=== PATIENT | female | born 1960 | race Caucasian/White ===

== ENCOUNTER 2019-02-13 13:34 | Inpatient (IN) | payer OTHER ==
[2019-02-13 14:07] LABS: #Basophils 0.1 thou/uL (0.0-0.2); #Eosinphils 0.1 thou/uL (0.0-0.7); #Lymphocytes 2.4 thou/uL (1.20-3.40); #Monocytes 0.6 thou/uL (0.11-0.59); #Neutrophils 4.1 thou/uL (1.40-6.50); %Eosinophils 1.3 % (0.0-10.0); %Lymphocytes 33.3 % (21.0-51.0); %Monocytes 7.8 % (0.0-10.0); %Neutrophils 56.6 % (42.0-75.0); Hemoglobin 13.6 g/dL (12.0-16.0); Mean Corpuscular HGB CONC 33.2 g/dL (32.0-36.0); Mean Corpuscular Volume 87.4 fL (78.0-98.0); Mean Platelet Volume 6.1 fL (7.4-10.4); Platelet Count 349 thou/uL (130-400); RBC Distribution Width 11.9 % (11.5-14.5); Red Blood Cell (RBC) Count 4.69 mill/uL (4.20-5.40); White Blood Cell (WBC) Count 7.3 thou/uL (4.8-10.8)
[2019-02-13 14:30] LABS: ALT (SGPT) 11 U/L (8-55); AST (SGOT) 14 U/L (5-34); Albumin 4.4 g/dL (3.5-5.0); Alkaline Phosphatase 82 U/L (40-150); Anion Gap 15 mmol/L (10-20); BUN (Urea Nitrogen) 14 mg/dL (9.8-20.1); Bilirubin, Total 0.6 mg/dL (0.2-1.2); Calc. Creatinine Clearance 0 mL/min (70-130); Calcium 10.1 mg/dL (7.8-10.44); Carbon Dioxide 27 mmol/L (22-29); Chloride 106 mmol/L (98-107); Estimated GFR-MDRD 51; Glucose 94 mg/dL (70-105); Lipase 27 U/L (8-78); Potassium 3.7 mmol/L (3.5-5.1); Protein, Total 7.4 g/dL (6.0-8.3); Sodium 144 mmol/L (136-145)
[2019-02-13] MEDS ORDERED: Lorazepam 2 MG/ML VIAL ONE (14:30)
[2019-02-13 15:16] LABS: PTT 36.2 SEC (22.9-36.1)
[2019-02-13 15:17] LABS: D-Dimer Test 0.95 *mcg/mL (0.27-0.43); Prothrombin Time 12.7 SEC (12.0-14.7)
--- NOTE | 2019-02-13 15:33 | CT ---
CT CHEST WITHOUT CONTRAST CLINICAL INDICATION: Shortness of breath after traveling. Difficulty swallowing. COMPARISON: None FINDINGS: Aorta: Lack of intravenous contrast limits evaluation of the vascular structures. However, the thorac ic aorta is normal in caliber. Lungs: Minimal biapical pleural and parenchymal scarring is present. The lungs are otherwise clear. N o discrete pulmonary nodule, mass, or pleural effusion is seen. Mediastinum: Lack of intravenous contrast limits evaluation of mediastinal structures, but no definit e enlarged lymph nodes are seen. There is minimal pericardial thickening versus pericardial effusion anteriorly. Thyroid gland: Grossly normal nonenhanced CT appearance Osseous structures: Postsurgical changes right shoulder are noted with anchor screws seen in the righ t humeral head likely due to prior rotator cuff repair. Mild degenerative changes are seen in the thoracic spine. Dorsal column stimulator leads are noted in place and terminate at the T8-9 level. Chest wall: There is suggestion of small nodular densities within each breast. However, this would be better evaluated with mammography. Upper abdomen: Postcholecystectomy changes are noted. There is moderate right-sided hydronephrosis pa rtially visualized involving the upper right renal collecting system. This could potentially represent parapelvic renal cysts, but parapelvic renal cysts were not seen on CT abdomen on 07/31/2015 . Small hiatal hernia is present. IMPRESSION: 1. Suggestion of small nodular densities in each breast. This would be better evaluated with mammogra phy if the patient has not had recent mammogram. 2. Suggestion of moderate right hydronephrosis involving the visualized superior pole right kidney. R enal sonogram is suggested for further evaluation. 3. The lungs are clear. 4. Small hiatal hernia. 5. Cholecystectomy.
--- NOTE | 2019-02-13 15:55 | CT ---
CT NECK WITHOUT CONTRAST: Axial tomograms are obtained with multiplanar reconstruction. The exam of the soft tissue neck is extremely limited without IV contrast. INDICATION: Difficulty swallowing. FINDINGS: Parotid glands, submandibular glands, and thyroid appear unremarkable. The thyroid is mildly heterog eneous and there may be tiny nodules present. Nasopharynx unremarkable. Oropharynx is obscured by dental appliances which produce the spray artifact. Base of tongue and brittany pharynx appear unremarkable. Waldeyer's ring appears symmetric. Hypopharynx shows effacement of the left piriform sinus. This should e directly evaluated to rule ou t mucosal abnormality. No evidence of soft tissue mass identified. Larynx appear unremarkable. The ad operations intern space, parapharyngeal space, and retropharyngeal space appear unremarkable. Degree of lymph node levels show nonspecific level I lymph nodes which are subcentimeter. No evidence of level II, level III, level IV, or level V adenopathy. There are mild to moderate degenerative changes in the cervical spine with disk narrowing and posteri or spondylosis most prominent at the C5-6 and C6-7 levels. There is cord impingement at C6-7. There is a mucous retention cyst in the left maxillary antrum which measures up to 2.5 cm. IMPRESSION: 1. Effacement of the left piriform sinus noted in the hypopharynx. Recommend direct evaluation to r ule out mucosal abnormality. 2. Mucous retention cyst in the left maxillary antrum. 3. No adenopathy. POS: OFF
[2019-02-13] MEDS ORDERED: Enoxaparin Sodium 80 MG/0.8 ML SYRINGE ONE (16:19)
[2019-02-13 18:24] VITALS: BMI 27.6
[2019-02-13] MEDS: Sodium Chloride 0.9% 1,000 ML IV SCH (20:38)
[2019-02-13] MEDS ORDERED: Zolpidem Tartrate 5 MG TAB PO SCH (22:45)
[2019-02-13] MEDS: Acetaminophen 325 MG TAB PO PRN (22:52)
[2019-02-13] MEDS: diphenhydrAMINE 50 MG/ML VIAL IVP SCH (22:53)
--- NOTE | 2019-02-13 23:40 | PDOC.EVN ---
Event Note - Event Note Event Note: H7P dictated
[2019-02-14] MEDS: diphenhydrAMINE 50 MG/ML VIAL IVP SCH ×4 (05:26→23:50)
[2019-02-14] MEDS: Sodium Chloride 0.9% 1,000 ML IV SCH (05:27)
--- NOTE | 2019-02-14 06:05 | HP ---
CHIEF COMPLAINT: Allergic reaction and shortness of breath. HISTORY OF PRESENT ILLNESS: Ms. Maynard is a 58-year-old female with history of hypertension and chronic back pain who presented to her primary care physician's office with itching for the last 3 days after she came back from a trip from [place]. In her primary care's office, patient was given dexamethasone and Depo-Medrol IM. After that she started having worsening of shortness of breath and tightness in her throat and unable to talk. The patient mentions that she had some mosquito bites and headache as well as rash on her forearms, requested to transfer the patient to [facility] for further management. Currently, the patient is feeling little better. She is still having itching. She is still having some scratchy throat and change in her voice. Other than that she is not in any respiratory distress. PAST MEDICAL HISTORY: 1. Hypertension. 2. Chronic back pain. PAST SURGICAL HISTORY: 1. Appendectomy. 2. Cholecystectomy. 3. Hysterectomy. 4. Hernia. 5. Back surgery x3. SOCIAL HISTORY: Denies smoking or alcohol drinking. FAMILY HISTORY: Reviewed and noncontributory. ALLERGIES: THE PATIENT IS ALLERGIC TO SHRIMP, IODINE, ERYTHROMYCIN AND CODEINE. REVIEW OF SYSTEMS: Review of 14 systems negative expect what was mentioned in the history of present illness. PHYSICAL EXAMINATION: GENERAL: The patient is awake, alert, not in acute distress. VITAL SIGNS: Heart rate is 105, respiratory rate 18, temperature 98.6, blood pressure is 150/90. HEAD AND NECK: Normocephalic and atraumatic. Neck is supple. Having hoarseness of her voice. Tongue normal size, not enlarged. CHEST: Fair bilateral air entry. No wheezing, no stridor. ABDOMEN: Soft, nontender. Bowel sounds present. HEART: S1, S2 regular. Tachycardic. NEUROLOGIC: Awake, alert, and oriented x3. PSYCHIATRIC: Normal mood. EXTREMITIES: No clubbing or cyanosis. SKIN: There is erythematous rash in both hands. ASSESSMENT: 1. Anaphylaxis reaction. 2. Shortness of breath secondary to above. 3. Hypertension. 4. Chronic back pain. PLAN: 1. We will admit to IMCU. 2. Close monitoring. 3. We will continue with IV benadryl and IV Pepcid. 4. We will avoid steroids for now. Apparently, the patient had a bad reaction to dexamethasone. 5. Acute pulmonary embolism is unlikely given patient presentation and rash and shortness of breath after taking IV dexamethasone. I will hold doing any CT angiogram since the patient is allergic to iodine. Also, we will reassess in the morning, if the patient needs further management, but I believe that representation is more like allergic in nature and acute pulmonary embolism is less likely. 6. Deep venous thrombosis prophylaxis, early ambulation. 7. Reconcile home medications. 8. Expected length of stay 1 midnight, if patient stable. Job ID: [id number]
--- NOTE | 2019-02-14 09:54 | ULT ---
US Renal Bilateral STANDARD HISTORY: Right-sided hydronephrosis COMPARISON: CT examination done yesterday FINDINGS: Real-time imaging of the right and left kidneys were performed. The right kidney measures 1 0.3 cm, the left kidney 10.1 cm in size. Right-sided hydronephrosis is identified. The bladder region appears unremarkable. A right ureteral jet was not identified. IMPRESSION: Right-sided hydronephrosis of uncertain etiology. CT would be suggested for further asses sment.
[2019-02-14] MEDS: Acetaminophen 325 MG TAB PO PRN (17:23)
--- NOTE | 2019-02-14 19:19 | PDOC.HOSPP ---
- Subjective Encounter Date: 02/14/19 Encounter Time: 14:00 Subjective: pt up in bed voice is hoarsed. - Objective Vital Signs & Weight: Vital Signs (12 hours) Temp Pulse Ox 02/14/19 15:38 99.2 F 02/14/19 11:16 97.8 F 02/14/19 08:00 97 02/14/19 07:30 98.5 F Weight Weight 150 lb 12.8 oz Most Recent Monitor Data Heart Rate from ECG 72 NIBP 135/76 NIBP BP-Mean 95 Respiration from ECG 14 SpO2 100 I&O: 02/13/19 02/14/19 02/15/19 06:59 06:59 06:59 Intake Total 1161 Balance 1161 Result Diagrams: 02/13/19 13:30 02/13/19 13:30 Hospitalist ROS - Review of Systems Respiratory: reports: other (hoarsed) Cardiovascular: denies: chest pain, palpitations, orthopnea, paroxysmal noc. dyspnea, edema, light headedness, other Gastrointestinal: denies: nausea, vomiting, abdominal pain, diarrhea, constipation, melena, hematochezia, other - Medication Medications: Active Medications Generic Name Dose Route Start Last Admin Trade Name Freq PRN Reason Stop Dose Admin Acetaminophen 650 mg 02/13/19 22:41 02/14/19 17:23 Tylenol PO 650 mg Q6H PRN Administration Pain Diphenhydramine HCl 25 mg 02/13/19 23:59 02/14/19 17:23 Benadryl IVP 25 mg Q6HR KEVIN Administration Sodium Chloride 10 ml 02/14/19 09:00 02/14/19 09:02 Flush - Normal Saline IVF Not Given Q12HR KEVIN - Exam Neck: negative: supple, symmetric, no JVD, no thyromegaly, no lymphadenopathy, no carotid bruit, JVD Heart: negative: RRR, no murmur, no gallops, no rubs, normal peripheral pulses, irregular, diminshed peripheral pulses, murmur present, II/IV, III/IV Respiratory: negative: CTAB, no wheezes, no rales, no ronchi, normal chest expansion, no tachypnea, normal percussion, rales, rhonchi, tachypneic, wheezes Hosp A/P (1) Allergic reaction Code(s): T78.40XA - ALLERGY, UNSPECIFIED, INITIAL ENCOUNTER Status: Acute (2) Hoarseness of voice Status: Acute (3) HTN (hypertension) Code(s): I10 - ESSENTIAL (PRIMARY) HYPERTENSION Status: Acute - Plan pt's rash was not visible on my examination. She denies using any new products that could cause this reaction. I did speak with her Primary care physician Dr Ortiz who stated that as soon as the needle came out she started to get hoarsed but she was tachycardia when she got to the clinic. According to the pt her rash is pruritic and is only on her palms bilaterally going up to her hands. She also stated that her soles were pruritic too. Not sure if this is tick born related but i think this is allergic. Her voice is very hoarsed. she has no trouble breathing but she has to strain to talk.
[2019-02-14] MEDS: Famotidine/PF 20 mg/2ml Vial SLOW IVP SCH (21:41)
[2019-02-14] MEDS: Gabapentin 300 MG CAP PO SCH (21:42)
[2019-02-14] MEDS: Zolpidem Tartrate 5 MG TAB PO SCH (21:42)
[2019-02-15] MEDS: diphenhydrAMINE 50 MG/ML VIAL IVP SCH ×3 (05:45→17:03)
[2019-02-15] MEDS: Famotidine/PF 20 mg/2ml Vial SLOW IVP SCH ×2 (09:03→21:24)
[2019-02-15] MEDS ORDERED: Calamine/Zinc Oxide 177 ML LOTION TP PRN (12:48)
[2019-02-15] MEDS ORDERED: methylPREDNISolone Sod Succ/PF 125 MG/2 ML VIAL IVP SCH (14:45)
[2019-02-15] MEDS ORDERED: Lorazepam 2 MG/ML VIAL SLOW IVP SCH (15:00)
[2019-02-15] MEDS ORDERED: EPINEPHrine 1 MG/ML AMP IM PRN (15:00)
[2019-02-15 15:09] LABS: #Basophils 0.1 thou/uL (0.0-0.2); #Eosinphils 0.1 thou/uL (0.0-0.7); #Lymphocytes 4.8 thou/uL (1.20-3.40); #Neutrophils 7.5 thou/uL (1.40-6.50); %Basophils 0.5 % (0.0-1.0); %Lymphocytes 35.7 % (21.0-51.0); %Monocytes 7.1 % (0.0-10.0); %Neutrophils 55.8 % (42.0-75.0); Hemoglobin 12.8 g/dL (12.0-16.0); Mean Corpuscular HGB CONC 34.1 g/dL (32.0-36.0); Mean Corpuscular Hemoglobin 29.8 pg (27.0-31.0); Mean Corpuscular Volume 87.4 fL (78.0-98.0); Mean Platelet Volume 7.9 fL (7.4-10.4); Platelet Count 348 thou/uL (130-400); RBC Distribution Width 11.5 % (11.5-14.5); Red Blood Cell (RBC) Count 4.29 mill/uL (4.20-5.40); White Blood Cell (WBC) Count 13.4 thou/uL (4.8-10.8)
[2019-02-15 15:27] LABS: ALT (SGPT) 8 U/L (8-55); AST (SGOT) 13 U/L (5-34); Albumin 4.1 g/dL (3.5-5.0); Alkaline Phosphatase 72 U/L (40-150); Anion Gap 12 mmol/L (10-20); BUN (Urea Nitrogen) 11 mg/dL (9.8-20.1); Bilirubin, Total 0.4 mg/dL (0.2-1.2); CRP (Inflammatory) Less than 0.50 mg/dL (= or < 0.5); Calc. Creatinine Clearance 59 mL/min (70-130); Calcium 9.6 mg/dL (7.8-10.44); Carbon Dioxide 27 mmol/L (22-29); Chloride 107 mmol/L (98-107); Estimated GFR-MDRD 51; Globulin 2.8 g/dL (2.4-3.5); Glucose 99 mg/dL (70-105); Potassium 3.2 mmol/L (3.5-5.1); Protein, Total 6.9 g/dL (6.0-8.3); Sodium 143 mmol/L (136-145)
[2019-02-15] MEDS ORDERED: cefTRIAXone\\ROCEPHIN 2 GM in Sodium Chloride 0.9% 100 ML IVPB SCH (16:00)
--- NOTE | 2019-02-15 16:05 | CON ---
DATE OF CONSULTATION: 02/15/2019 SERVICE: Pulmonary Medicine. REASON FOR CONSULTATION: IMCU patient. HISTORY OF PRESENT ILLNESS: The patient is a 58-year-old white female with past medical history significant for essentially nothing. That being said, she was having this rash on her hands. She went to her primary care physician, who gave her a steroid injection. As she was withdrawing the needle of the injection, the patient had sudden onset of hoarseness, shortness of breath, and some difficulty swallowing. She was brought to the emergency department. Whenever she gets a dose of Benadryl, the rash in her hands goes away. That being said, we have had 3 separate episodes in which the rash is come back after the Benadryl wears off. Yesterday, she was having difficulties with swallowing. This morning, she was able to eat food without difficulty, but for lunch, she once again started having increasing difficulty with swallowing and hoarseness. The rash in her hands came back. She denies any current fevers, chills, nausea, or vomiting. She has not been having on and off diarrhea. She denies having any abdominal discomfort. PAST MEDICAL HISTORY: 1. Hypertension. 2. Chronic back pain. PAST SURGICAL HISTORY: 1. Appendectomy. 2. Cholecystectomy. 3. Hysterectomy. 4. Herniorrhaphy. 5. Back surgery x3. SOCIAL HISTORY: Negative for alcohol, tobacco, or illicit drug use. She has no exposure to chemicals, dust, asbestos, or tuberculosis. FAMILY HISTORY: Noncontributory. ALLERGIES: IODINE, ERYTHROMYCIN, AND CODEINE. MEDICATIONS: List of her inpatient medications was reviewed. I have gotten rid of basically everything that she does not have a symptom that would warrant. PHYSICAL EXAMINATION: VITAL SIGNS: Afebrile, pulse 84, blood pressure 141/77, respirations 15, and saturation 100% currently on room air. GENERAL: The patient is awake and alert, in no apparent distress. LUNGS: Absolutely wonderful air entry. There is no prolonged expiratory phase. No wheezing, rhonchi, or crackles are appreciated. She is moving beautiful air. There is absolutely no stridor in the upper airway. HEART: Normal rate. Regular. ABDOMEN: Soft, nontender, and nondistended. Bowel sounds are positive. MUSCULOSKELETAL: No cyanosis or clubbing. There is no pitting in the bilateral lower extremities. The rash consists of papular, erythematous, nonblanching splotchy lesions scattered throughout the acral regions on the palms of her hands, in the soles of her feet. She has some limited disease in the lateral aspects of the fingers and palms. She has one or two spots on the back of the hand, but the rest of her arms, body, and face are unaffected. REVIEW OF SYSTEMS: General; head, ears, eyes, nose, throat; cardiovascular; respiratory; GI; ; musculoskeletal; neurologic; and skin are negative except as mentioned in the HPI. LABORATORY DATA: CBC is completely unremarkable. Eosinophil count is low. INR 1.0. Basic metabolic profile and liver function studies are completely unremarkable. Troponin is negative x1, BNP is unremarkable. Lactate is negative. IMAGING: Renal ultrasound demonstrates small amount of right-sided hydronephrosis. No ureteral jet was identified. CT of the neck demonstrates effacement of the left piriform sinus in the hypopharynx. Mucous retention cyst in the left maxillary antrum. No adenopathy is appreciated. CT of the chest demonstrates no acute cardiopulmonary abnormality. Small hiatal hernia is noted, and esophagus is quite patulous. ASSESSMENT: 1. Acral pruritic papular rash. 2. Hoarseness and dysphagia without discomfort, intermittent. 3. Dyspnea, resolved. DISCUSSION AND PLAN: The patient has really no swelling of the tongue or posterior oropharynx. Her air flow through her lungs is widely patent. At this point, it does not require advanced airway. ENT is going to come look at her nose and throat. If they see anything of concern, we will likely proceed with intubation. We are going to need to investigate this rash. I will initiate the patient on methylprednisolone q.6 as she had an abnormal response to the dexamethasone previously. ID has already been contacted. Pulmonary/Critical Care will follow in this location. She will need to remain here until she goes a period of time without having one of these events. 70 minutes have been devoted to this patient in various activities. I personally reviewed all imaging studies and laboratory data noted within this document. For fifty percent of this time, I was interacting with the patient at the bedside or coordinating care with the care team. For the remainder of the time I was immediately available to the patient in the hospital unit. Job ID: [id number] [facility]
[2019-02-15] MEDS ORDERED: NS 0.9% w/ 20 MEQ KCL 1,000 ML/1,000 ML BAG IV SCH (16:45)
[2019-02-15] MEDS: methylPREDNISolone Sod Succ 40 MG VIAL IVP SCH (17:03)
[2019-02-15 18:06] LABS: ANA Symphony (Qualitative) Negative (Negative); ANA Symphony (Quantitative) 0.2 Ratio (< 0.7 Negative); dsDNA IgG Antibody 0.5 IU/mL (<10 Negative)
--- NOTE | 2019-02-15 18:35 | PDOC.HOSPP ---
- Subjective Encounter Date: 02/15/19 Encounter Time: 12:30 Subjective: pt up in bed very hoarsed and is having difficult speaking - Objective Vital Signs & Weight: Vital Signs (12 hours) Temp Pulse Resp Pulse Ox 02/15/19 15:23 98.4 F 02/15/19 14:09 84 16 100 02/15/19 11:07 98.4 F 02/15/19 07:19 98.7 F Weight Weight 150 lb 12.8 oz Most Recent Monitor Data Heart Rate from ECG 93 NIBP 149/95 NIBP BP-Mean 113 Respiration from ECG 15 SpO2 100 I&O: 02/14/19 02/15/19 02/16/19 06:59 06:59 06:59 Intake Total 8546 582 9150 Balance 2950 253 2367 Result Diagrams: 02/15/19 14:24 02/15/19 14:23 Hospitalist ROS - Review of Systems ENT: reports: other (difficulty speaking) Respiratory: denies: cough, dry, shortness of breath, hemoptysis, SOB with excertion, pleuritic pain, sputum, wheezing, other Cardiovascular: denies: chest pain, palpitations, orthopnea, paroxysmal noc. dyspnea, edema, light headedness, other Gastrointestinal: denies: nausea, vomiting, abdominal pain, diarrhea, constipation, melena, hematochezia, other - Medication Medications: Active Medications Generic Name Dose Route Start Last Admin Trade Name Freq PRN Reason Stop Dose Admin Acetaminophen 650 mg 02/13/19 22:41 02/14/19 17:23 Tylenol PO 650 mg Q6H PRN Administration Pain Diphenhydramine HCl 25 mg 02/13/19 23:59 02/15/19 17:03 Benadryl IVP 25 mg Q6HR KEVIN Administration Epinephrine 0.3 mg 02/15/19 15:00 02/15/19 15:07 Epinephrine IM 0.3 mg Q5MIN PRN Administration Allergies Famotidine 20 mg 02/14/19 21:00 02/15/19 09:03 Pepcid SLOW IVP 20 mg BID KEVIN Administration Gabapentin 300 mg 02/14/19 21:00 02/14/19 21:42 Neurontin PO 300 mg HS KEVIN Administration Doxycycline Hyclate 100 mg/ 100 mls @ 100 mls/hr 02/15/19 17:00 02/15/19 17: 02 Sodium Chloride IVPB 03/01/19 17:01 100 mls 0500,1700 KEVIN Administration Ceftriaxone Sodium 2 gm/ 100 mls @ 200 mls/hr 02/15/19 16:00 02/15/19 16:04 Sodium Chloride IVPB 03/01/19 16:01 100 mls Q24HR KEVIN Administration Potassium Chloride/Sodium Chloride 1,000 ml in 1,000 mls @ 50 mls/hr 02/15/19 16:45 02/15/19 17:03 Ns 0.9% W/ 20 Meq Kcl IV 02/16/19 12:44 1,000 mls .Q20H KEVIN Administration Methylprednisolone Sodium Succinate 40 mg 02/15/19 18:00 02/15/19 17:03 Solu-Medrol IVP 40 mg Q6HR KEVIN Administration Sodium Chloride 10 ml 02/14/19 09:00 02/15/19 09:06 Flush - Normal Saline IVF 10 ml Q12HR KEVIN Administration Zolpidem Tartrate 10 mg 02/14/19 21:00 02/14/19 21:42 Ambien PO 10 mg HS KEVIN Administration - Exam Neck: negative: supple, symmetric, no JVD, no thyromegaly, no lymphadenopathy, no carotid bruit, JVD Heart: negative: RRR, no murmur, no gallops, no rubs, normal peripheral pulses, irregular, diminshed peripheral pulses, murmur present, II/IV, III/IV Respiratory: negative: CTAB, no wheezes, no rales, no ronchi, normal chest expansion, no tachypnea, normal percussion, rales, rhonchi, tachypneic, wheezes Skin - other findings: rash noted to bilateral palms Hosp A/P (1) Allergic reaction Code(s): T78.40XA - ALLERGY, UNSPECIFIED, INITIAL ENCOUNTER Status: Acute (2) Hoarseness of voice Status: Acute (3) HTN (hypertension) Code(s): I10 - ESSENTIAL (PRIMARY) HYPERTENSION Status: Acute - Plan pt's rash was not visible on my examination. She denies using any new products that could cause this reaction. I did speak with her Primary care physician Dr Ortiz who stated that as soon as the needle came out she started to get hoarsed but she was tachycardia when she got to the clinic. According to the pt her rash is pruritic and is only on her palms bilaterally going up to her hands. She also stated that her soles were pruritic too. Not sure if this is tick born related but i think this is allergic. Her voice is very hoarsed. she has no trouble breathing but she has to strain to talk. 02/15 spoke with ENT who will come to evaluate pt. pulmonary called since pt's is having difficulty swallowing. will also give pt epinephrine. will check cbc/ cmp and edna.
[2019-02-15] MEDS: Zolpidem Tartrate 5 MG TAB PO SCH (21:24)
[2019-02-15] MEDS: Gabapentin 300 MG CAP PO SCH (21:24)
[2019-02-16] MEDS: diphenhydrAMINE 50 MG/ML VIAL IVP SCH ×2 (00:33→05:49)
[2019-02-16] MEDS: methylPREDNISolone Sod Succ 40 MG VIAL IVP SCH ×2 (00:34→05:49)
[2019-02-16 07:00] LABS: Syphilis Antibody Nonreactive (Nonreactive); Syphilis Antibody Index 0.04 S/CO (<1.00 Non-Reactive)
[2019-02-16] MEDS: Famotidine/PF 20 mg/2ml Vial SLOW IVP SCH (09:24)
[2019-02-16 10:44] VITALS: TEMP 98.5
--- NOTE | 2019-02-16 23:37 | DIS ---
DATE OF ADMISSION: 02/13/2019 DATE OF DISCHARGE: 02/16/2019 DISCHARGE DIAGNOSES: 1. Allergic reaction versus contact dermatitis. 2. 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 3. Right-sided hydronephrosis noted on the renal ultrasound; however, creatinine was normal. 4. Mild cord impingement in C6-C7 without any clinical deficits. HOSPITAL COURSE: The patient is a 58-year-old female, who initially presented to the hospital, who was brought in from the PCP's office for possible allergic reaction. The patient initially was toward the end of her trip from [place], started having this pruritic rash that appeared in her bilateral palms and soles of her feet. The patient stated that initially she did not really do much about it; however, since the itchiness worsened and her Benadryl was not really helping her, she came in to her PCP's office for further evaluation. I also spoke with her primary care doctor, Dr. Sumit Ortiz, who stated that she was given Depo-Medrol steroid and as soon as he withdrew the needle, she became very hoarse. At this time, she was rushed to the ER for further evaluation. The patient also prior to be seen by her primary, she was found to be tachycardic in her primary care's office. In the ER, she was given an epinephrine and her saturations have continued to remain 100%. She was admitted to the hospital for close monitoring. In the ICU, upon my evaluation, she did have a significant non-blanching rash to bilateral palms and a little bit to maybe in her knuckles. Nothing on the soles of the feet. I examined her completely from head to toe to see for possible any tick-borne disease, which was a negative find. We also sent lab values for Lyme disease and Bantry spotted fever. MICHAEL was normal. RPR was negative. I also curbsided Infectious Disease to come take a look at her rash, who did not think this was secondary to possible tick-borne disease and recommended possible contact dermatitis. Initially, she was on clear liquid and then her diet was advanced. However, on the second day, after eating lunch, she became very hoarse to the point that she could not talk. She was hoarse, but she just could not talk anymore. The day prior to this event, she was able to communicate; however, it was a significant effort for her to communicate. At this time, I did get in touch with ENT, Dr. Andrew Chau, who was kind enough to come in to the hospital after his clinic hours to do a visualization of her vocal cords. She also had a CT neck and a CT chest, which was essentially normal. It did not show any acute abnormalities except for just some effacement of the left piriformis sinus noted in the hypopharynx and her CT chest indicated she also has small nodular densities in each breast and recommended an MRI. The patient also had some right hydronephrosis. Her lungs were clear and she has a small hiatal hernia. Also, on her neck CT, she was noted to have a C6-C7 spondylosis with some cord impingement at C6-C7. However, the patient upon asking her questions, she stated that she was asymptomatic. She also has a pain stimulator to her lower back. The patient was given epinephrine. She was given steroids. She was given antibiotics. She was also seen by Pulmonology. The patient's condition improved the following day. The ENT did call me back stating that this most likely was secondary to a stressful situation. Her anatomy appeared to be normal. He recommended to follow up with him in his office and stated that it was most likely a spasmodic dysphonia due to a stressor. The patient today has been able to eat. She is able to talk and she wants to be discharged home. I will discharge her. She does not want any steroids. I did speak with Pulmonology, who recommended to continue the doxycycline for a total of 14 days. Also, her Lyme disease and Bantry spotted fever testing are pending. I will also give her fluconazole p.r.n. since she is on antibiotics, Florastor 250 daily, Atarax 250 b.i.d. p.r.n., Neurontin 300 mg at bedtime, amlodipine 12.5 at bedtime, and lisinopril 10 mg daily. PHYSICAL EXAMINATION: VITAL SIGNS: Temperature of 98.5, blood pressure 164/95, heart rate 81, respiratory rate 18, oxygen saturation 99% on room air. GENERAL: She is awake, alert, and oriented x3. Does not appear in distress. CV: S1, S2 present. No murmurs, rubs, or gallops. Her voice is hoarse, but it is much improved than when she came in. DISCHARGE INSTRUCTIONS: The patient again will follow up with her primary. I have also recommended her to get an allergy tested, possibly with some food or maybe she touched something, which caused her to have some contact dermatitis and she also will follow up with ENT for spasmodic dysphonia and also her primary. Job ID: [id number]
--- NOTE | 2019-02-17 02:11 | CON ---
DATE OF CONSULTATION: REASON FOR CONSULTATION: For hoarseness, dysphonia, dysphagia, throat swelling, and shortness of breath. REQUESTING PHYSICIAN: Juhi Rich MD. The admission was for an allergic reaction and shortness of breath, possibly angioedema or allergic reaction. HISTORY OF PRESENT INJURY: The patient is a 58-year-old female patient, who was for several days experiencing some itchiness and redness of her palms and has been taking Benadryl with only mild benefit and then presented to her primary care physician and was administered a steroid shot for possible allergic reaction and immediately after the steroid shot, began to have the sensation of throat swelling, hoarseness, and shortness of breath. The patient presented to the emergency room and was evaluated by the emergency room physicians and hospitalists and admitted for observation and for workup for possible angioedema or allergic reaction causing potential upper airway edema, shortness of breath, and possibly inability to ventilate. PAST MEDICAL HISTORY: Significant for hypertension. PAST SURGICAL HISTORY: Includes multiple spine surgeries with peripheral neuropathy. CURRENT MEDICATIONS: The patient is currently taking lisinopril and gabapentin. ALLERGIES: NO KNOWN DRUG ALLERGIES. SOCIAL HISTORY: The patient lives with , who is currently doing a bucket list for severe health issues and was recently travelling to [place] and has returned to [place] currently. FAMILY HISTORY: Noncontributory. REVIEW OF SYSTEMS: SKIN: Light palmar erythema. EYES: Negative. EARS, NOSE, AND THROAT: See HPI, are otherwise negative. RESPIRATORY: Negative. CARDIOVASCULAR: Negative. GASTROINTESTINAL: Negative. MUSCULOSKELETAL: Negative. NEUROLOGIC: Negative. LYMPHATIC/IMMUNOLOGIC: Negative. ENDOCRINE: Negative. OBJECTIVE: The patient had mild tachycardia after administration of epinephrine during the exam. PHYSICAL EXAMINATION: GENERAL: Included no acute distress. The patient had no stridor; however, the patient had a rough hoarseness in her voice but no difficulty in moving air. HEAD AND FACE: Normocephalic and atraumatic. No facial skin lesions. No maxillary tenderness. No frontal tenderness. No parotid masses, lesions, or tenderness. No submandibular gland masses or tenderness. Facial strength was symmetric. EYES: Extraocular movements intact. Pupils, round and reactive. Sclerae, clear and anicteric. EARS: Clinical speech thresholds were normal. External ears were normal, and external ear canals were normal as well. NOSE: External nose; normal, no deformity. Normal mucosa of the nose. Septum midline. Inferior turbinates were healthy. No polyps. No nasal discharge. MOUTH AND THROAT: Oral mucosa was moist without lesions. Tongue and floor of mouth without masses. No evidence of hydropic edema or erythema. No signs of infection. Palate and uvula without lesions and with symmetric evaluation. Tonsils were symmetric without lesions. Oropharynx was clear. Pharyngeal wall is normal. NECK: No masses. Normal appearance for age. Trachea was midline. No thyroid masses and no palpable lymphadenopathy. RESPIRATORY: Normal respiratory effort. No retractions. No shortness of breath. No wheezing. CARDIOVASCULAR: Peripheral vascular system seems normal. No ischemia or duskiness of peripheral limbs. LYMPHATIC: No palpable cervical lymphadenopathy. NEUROLOGIC/PSYCHIATRIC: Cranial nerves 2 through 12 were grossly normal. Alert and oriented. Mood and affect were normal. PROCEDURE PERFORMED: Flexible nasopharyngoscopy. DESCRIPTION OF PROCEDURE: After verbal consent was obtained, the tip of the nasolaryngoscope was passed into the nasal cavity and into the hypopharynx of the patient and the larynx was visualized as well as the pharynx, base of tongue, and epiglottis, and the patient was asked then phonate E. Nasopharynx had no masses or lesions noted. No evidence of velopharyngeal insufficiency. Hypopharynx, no masses or lesions noted. No pooling of secretions in the vallecula or pyriform sinuses. Pharyngeal parker were with normal motion and intact. Larynx showed full abduction and full adduction of the vocal folds and no lesions were noted. Subglottis; the visible subglottis was widely patent. No clear edema or hydropic edema that was obstructive. It was noted that during the exam there was normal movement; however, after the exam completed, the patient's hoarseness returned, which was not present during the exam and the sound was significant for spasmodic dysphonia with breaks in the voice. The patient tolerated the procedure without complaint and overall did well. ASSESSMENT AND PLAN: The patient is a 58-year-old female, who recently had some dermatologic irritation and palmar erythema and possible desquamation of the palms that had caused the patient significant distress. The patient is experiencing significant anxiety with recent events in her life and activity that she has participated in. The patient is moving air with no respiratory distress and no evidence of upper airway obstruction was noted on exam. 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 Currently, there is no risk for upper airway obstruction that would cause shortness of breath or difficulty with ventilating the patient currently. All these findings were immediately discussed with her primary physician and continuing workup will be left to the primary team. Job ID: [id number]
[2019-02-18 12:09] LABS: Lyme IgG/IgM AB <0.91 ISR (0.00-0.90)
[2019-02-19 01:07] LABS: RMSF IgG (EIA) Negative (Negative); RMSF IgM 0.19 index (0.00-0.89)
== END 2019-02-16 13:54 | disposition home or self-care (01) | DRG 916 ==
LOC: SCSER 13:34 → IMCU/EMU 16:23
PROVIDERS: ADMIT Internal Medicine; ATTEND Internal Medicine
PROC: 0CJY8ZZ Inspection of Mouth and Throat, Via Natural or Artificial Opening Endoscopic (ICD-10-PCS; principal; 2019-02-16)
DX: T78.40XA Allergy, unspecified, initial encounter (principal); N13.30 Unspecified hydronephrosis; I10 Essential (primary) hypertension; F41.9 Anxiety disorder, unspecified; G89.29 Other chronic pain; F44.4 Conversion disorder with motor symptom or deficit; K44.9 Diaphragmatic hernia without obstruction or gangrene; M47.892 Other spondylosis, cervical region; G62.9 Polyneuropathy, unspecified; M25.80 Other specified joint disorders, unspecified joint; R13.10 Dysphagia, unspecified; Z90.49 Acquired absence of other specified parts of digestive tract; Z90.710 Acquired absence of both cervix and uterus; Z88.1 Allergy status to other antibiotic agents; Z88.8 Allergy status to other drugs, medicaments and biological substances
CPT/HCPCS: 36415; 70490; 71250; 76770; 80053; 83516; 83605; 83690; 83880; 84484; 85025; 85379; 85610; 85652; 85730; 86038; 86140; 86225; 86618; 86757; 86780; 93005; 94640; 96361; 96372; 96374; 96375; J0171; J0696; J1200; J1650; J2060; J2920; J3480; J3490; S0028

== ENCOUNTER 2021-09-10 10:40 | Outpatient (CLI) | payer BC | END 2021-09-10 10:41 | disposition home or self-care (01) | LOC: SCSCT 10:40 | PROVIDERS: ATTEND Urology | DX: N20.9 Urinary calculus, unspecified (principal); N13.2 Hydronephrosis with renal and ureteral calculous obstruction | CPT/HCPCS: 74176 ==

== ENCOUNTER 2021-09-27 11:06 | Outpatient (CLI) | payer BC ==
[2021-09-27 12:17] LABS: Bilirubin Neg (Negative); Blood, Urine 50 (Negative); Clarity Cloudy (Clear); Glucose, Urine (Dipstick) Normal (Negative); Ketone, Urine Negative (Negative); Leukocyte 500 (Negative); Nitrite Negative (Negative); Protein, Urine (Dipstick) 30 mg/dl (Neg-Trace); Specific Gravity, Urine 1.015 (1.002-1.036); Urobilinogen Normal mg/dL (Less than 2)
[2021-09-27 12:49] LABS: INR-International Normal Ratio 0.9; PTT 27.3 sec (22.0-33.0); Prothrombin Time 9.9 sec (9.5-12.1)
[2021-09-27 12:51] LABS: Anion Gap 15 mmol/L (10-20); BUN (Urea Nitrogen) 11 mg/dL (9.8-20.1); Calc. Creatinine Clearance 0 mL/min (70-130); Calcium 9.7 mg/dL (7.8-10.44); Carbon Dioxide 27 mmol/L (23-31); Chloride 106 mmol/L (98-107); Glucose 96 mg/dL (80-115); Potassium 4.1 mmol/L (3.5-5.1); Sodium 144 mmol/L (136-145)
[2021-09-27 12:57] LABS: Hemoglobin 13.1 g/dL (12.0-15.5); Mean Corpuscular Hemoglobin 28.1 pg (27.0-33.0); Mean Corpuscular Volume 87.6 fl (81.6-98.3); Mean Platelet Volume 9.6 fl (7.4-10.4); Platelet Count 285 10x3/uL (150-450); RBC Distribution Width 12.7 % (11.5-14.5); Red Blood Cell (RBC) Count 4.67 10x6/uL (3.90-5.03); White Blood Cell (WBC) Count 6.3 10x3/uL (3.5-10.5)
[2021-09-27 13:18] LABS: Bacteria/HPF 4+ HPF (None Seen); Mucous/LPF 2+ LPF (<2+); Squamous Epithelial 0-3 HPF (0-3); Transitional Epithelial 0-3 HPF (None Seen); WBC/HPF 21-50 HPF (0-3)
[2021-09-27 23:31] LABS: SARS-CoV-2 PCR by NAA Not Detected (NotDetected)
== END 2021-09-27 11:07 | disposition home or self-care (01) ==
LOC: LABBT 11:06
PROVIDERS: ATTEND Urology
DX: Z01.818 Encounter for other preprocedural examination (principal); N20.9 Urinary calculus, unspecified; N13.4 Hydroureter; Z20.822 Contact with and (suspected) exposure to COVID-19
CPT/HCPCS: 80048; 81001; 85027; 85610; 85730; 87086; 93005; 93010; U0003; U0005

== ENCOUNTER 2021-09-30 09:22 | Day surgery (SDC) | payer BC ==
[2021-09-28 09:56] VITALS: BMI 27.2
[2021-09-30] MEDS ORDERED: B & O ONE (11:37)
[2021-09-30] MEDS ORDERED: Ioversol 68 % 50 ML VIAL ONE (11:41)
[2021-09-30] MEDS ORDERED: Fentanyl 100 MCG/2 ML VIAL ONE ×3 (11:46→14:06)
[2021-09-30] MEDS ORDERED: Levofloxacin 500 mg/D5W 100 ml Premix Bag ONE (12:01)
[2021-09-30] MEDS ORDERED: Ondansetron PF 4 MG/2 ML Vial ONE (12:20)
[2021-09-30] MEDS ORDERED: PROPOFOL 200 MG/20 ML VIAL ONE (12:20)
[2021-09-30] MEDS ORDERED: Lidocaine 1% PF 5 ML VIAL ONE (12:20)
[2021-09-30] MEDS ORDERED: Dexamethasone 20 MG/5 ML VIAL ONE (12:20)
[2021-09-30] MEDS ORDERED: Metoclopramide HCl 10 MG/2 ML VIAL ONE (12:20)
[2021-09-30] MEDS ORDERED: Glycopyrrolate 0.2 MG/ML 5 ML SYRINGE ONE (12:20)
[2021-09-30] MEDS ORDERED: Rocuronium Bromide 10 MG/ML (10ML VIAL) ONE (12:20)
[2021-09-30] MEDS ORDERED: SUGAMMADEX SODIUM 200 MG/2 ML VIAL ONE (13:28)
[2021-09-30] MEDS ORDERED: Phenazopyridine HCl 100 MG TAB ONE (14:15)
[2021-10-05 18:13] LABS: CA Oxalate Dihydrate 60 % (.); CA Oxalate Monohydrate 40 % (.); Color Tan (.); Stone Weight 174 mg (.)
== END 2021-09-30 16:02 | disposition home or self-care (01) ==
LOC: SDC 09:22
PROVIDERS: ATTEND Urology
PROC: 0T768DZ Dilation of Right Ureter with Intraluminal Device, Via Natural or Artificial Opening Endoscopic (ICD-10-PCS; principal; 2021-09-30)
PROC: 0TC68ZZ Extirpation of Matter from Right Ureter, Via Natural or Artificial Opening Endoscopic (ICD-10-PCS; principal; 2021-09-30)
DX: N20.1 Calculus of ureter (principal); I10 Essential (primary) hypertension; E78.00 Pure hypercholesterolemia, unspecified; G62.9 Polyneuropathy, unspecified; G47.00 Insomnia, unspecified; Z79.899 Other long term (current) drug therapy; Z88.1 Allergy status to other antibiotic agents; Z88.5 Allergy status to narcotic agent; Z88.8 Allergy status to other drugs, medicaments and biological substances; Z91.013 Allergy to seafood
CPT/HCPCS: 74420; 82365; 88300; C1713; C2617; J1100; J1956; J2405; J2704; J2765; J3010; Q9967